=== PATIENT | female | born 1970 | race African-American/Black ===

== ENCOUNTER 2018-10-14 06:24 | Emergency (ER) | payer OTHER ==
[~2018-10-14] VITALS: Ht 167.6 cm; Wt 90.7 kg
[2018-10-14 07:53] VITALS: BP 132/87
[2018-10-14 08:09] LABS: Urine Bacteria MANY /hpf (None Seen); Urine Blood 1+ /uL (Negative); Urine Mucus FEW (None Seen); Urine Specific Gravity 1.018 (1.001-1.035); Urine WBC 13 /hpf (0 - 5)
== END 2018-10-14 08:56 | disposition home or self-care (01) ==
LOC: ER 06:30
DX: G44.209 Tension-type headache, unspecified, not intractable (principal); F41.1 Generalized anxiety disorder
CPT/HCPCS: 70450; 81001; 81025